=== PATIENT | female | born 1945 | race Caucasian/White ===

== ENCOUNTER 2016-05-30 08:35 | Inpatient (IN) | payer MEDICARE ==
[2016-05-27 13:23] LABS: HEMATOCRIT 34.5 % (36.0-48.0); HEMOGLOBIN 11.7 g/dL (12.0-16.0)
[2016-05-27 13:34] LABS: BUN (BLOOD UREA NITROGEN) 13 MG/DL (6-23); CALCIUM, SERUM 9.2 MG/DL (8.5-10.4); CHLORIDE, SERUM 102 MMOL/L (96-112); CO2 (CARBON DIOXIDE) 29 MMOL/L (24-34); CREATININE 0.96 MG/DL (0.55-1.02); GFR AFRICAN AMERICAN 69 ML/MIN (>=60); GFR NON AFRICAN AMERICAN 60 ML/MIN (>=60); GLUCOSE, SERUM 102 MG/DL (60-99); POTASSIUM, SERUM 4.1 MMOL/L (3.5-5.3); SODIUM, SERUM 141 MMOL/L (135-148)
--- NOTE | ~2016-05-30 | DS ---
Discharge Summary [facility] [address] [place]. [address] NAME: DOLORES AVILA : 47 STATUS : DIS IN PAT#: [id number] AGE: 71 ADM/REG DATE : 05/30/16 MR#: [id number] REPORT SERV DATE: 07/04/16 DICTATED BY: LISSETTE NIELSEN DATE: 07/03/16 REPORT STATUS : Draft TRANSCRIBED BY: ISMAEL DATE: 07/03/16 Data Collection from hospitalization DISCHARGE DIAGNOSES: 1. A 6.5 cm descending thoracic aortic aneurysm. 2. Hypertension. 3. Schizophrenia. 4. Hyperlipidemia. 5. Chronic obstructive pulmonary disease. 6. Anemia. 7. Dementia. 8. Depression. CONSULTATIONS: Dr. Chintan Degroot and Dr. Prasad Martins. PROCEDURES PERFORMED: 1. Left carotid subclavian bypass (7 mm Hemashield graft). 2. Ultrasound-guided percutaneous access, bilateral common femoral arteries. 3. Catheter placement in the thoracic aorta from bilateral femoral access. 4. Thoracic aortogram. 5. Endovascular repair of descending thoracic aortic aneurysm with planned left subclavian artery coverage (MIDAS Solutionstronic Valiant 44 x 44 x 200 proximal main device and 40 x 36 x 150 distal main device). DISCHARGE MEDICATIONS: Cogentin 1 mg twice a day, BuSpar 15 mg three times a day, Colace 100 mg twice a day, Pepcid 20 mg twice a day, Zocor 40 mg at bedtime, Saphris 20 mg sublingually twice a day, Zestril 20 mg daily, Lopressor 25 mg twice a day, iron one tablet after breakfast. CONDITION ON DISCHARGE: Stable. DISPOSITION: The patient was discharged to [facility] with diet and activities as instructed. She would follow up with me four weeks following discharge. HOSPITAL COURSE: This is a 71-year-old female who has ascending and descending thoracic aortic aneurysm. Her descending thoracic aneurysm was approximately 6.5 cm and was felt to be greater risk at this point. It was recommended that she undergo endovascular repair. It was felt that this would require left subclavian artery coverage. She consented for concomitant left carotid subclavian bypass. Treatment options were discussed and she elected to proceed with surgical intervention. She was admitted to the hospital at this time for further evaluation and treatment. Upon admission, she was taken to the operating room where she underwent the above-mentioned procedure. She tolerated this well and there were no complications. On postop day #1, she was seen by Dr. Chintan Degroot regarding stridor. She had initially been extubated in the PACU, but then had to be immediately reintubated before she returned back to the cardiovascular intensive care unit. She was then extubated a second time and remained extubated overnight and throughout the day. Throughout the course of the evening, her oxygen requirement had Discharge Summary [address] [place]. [address] NAME: DOLORES AVILA : 47 STATUS : DIS IN PAT#: [id number] AGE: 71 ADM/REG DATE : 05/30/16 MR#: [id number] REPORT SERV DATE: 07/04/16 DICTATED BY: LISSETTE NIELSEN DATE: 07/03/16 REPORT STATUS : Draft TRANSCRIBED BY: ISMAEL DATE: 07/03/16 increased from 2 L to 10 L nasal cannula high flow. About 30 minutes or so prior to this consult, she developed some upper airway stridor sounds and a racemic epinephrine was given by Respiratory. He had been asked to see the patient for assistance in management of her stridor. The patient denied shortness of breath, fevers, chills, or sweats. She denied any cough. She does have a history of COPD. She was confused and was really unable to provide any history due to her underlying dementia. Chest x-ray showed some left lower lobe atelectasis, otherwise no infiltrates. It was felt that most likely her stridor or was due to some airway edema from re-intubation following her surgery. Her oxygen requirement had increased, but currently she seemed to be maintaining her airway. She did have some inspiratory stridor that was easily auscultated over her trachea. She had already received racemic epinephrine. We continued to give these as needed. We would also start IV Decadron. We would wean her oxygen as tolerated. We would monitor her respiratory status very closely. There would be a low threshold to intubate her should she have further respiratory decompensation. He did not suspect that there was a component of pulmonary edema, so she was not going to be given diuresis for now. Her normal bronchodilators were continued. On the fifth, she had some agitation. Precedex had been started. She had no complaints of pain. Frank catheter was in place. She still had some confusion, but could respond appropriately. On 06/02/2016, Precedex was continued for agitation. Cardene was being given for hypertension. She was evaluated by Occupational and Physical Therapy. Speech/Language Pathology performed a bedside swallow study. The next day, Precedex was decreased, Cardene was stopped. She could move all extremities. On 06/04/2016, she still had some confusion. Precedex had been off for part of the evening. She was less agitated. She seemed to be more responsive. Tube feedings were going to begin. The next day, she was less agitated. She was more coherent. She was able to carry on a coherent conversation. Lopressor was increased. On 06/06/2016, chest x-ray showed left basilar atelectasis. She was alert, but confused. Speech/language pathology performed a bedside swallow study. Aspiration precautions were in place. She received Haldol overnight and her systolic blood pressure decreased into the 80s. She pulled out her central line and NG tube. She was going to be placed on a mechanical soft diet. She was seen in consultation by Dr. Prasad Martins. She had been confused and episodically agitated since her surgery. He had been asked to see the patient regarding possible pre-existing bipolar disorder and dementia. She has had a psychiatric admission to the [facility] program at [facility] about 4 or 5 years ago. Her most recent admission was to [facility] within the past year or so. She had been admitted to [facility] in her early 40s when she was going through a divorce and stayed there for a month or two. Most recently, she had been stabilized on Saphris and BuSpar as well as Cogentin. Her typical symptoms include paranoid ideation, hallucinations, and anger episodes. Dr. Cherry thought she may, in addition have an element of dementia. Her postop delirium had improved. She was felt to have a schizoaffective disorder. Her current psychotropic regimen continued at this time. Over the next couple of days, she still has some agitation overnight. Haldol was being given. At times, she refused care. On the , she was more cooperative. She was stable neurologically. Her mental status had improved. Discharge planning was performed. On 06/10/2016, she seemed to be less confused. Her vital signs were stable. She could move all of her extremities. Discharge instructions were given. Due to her improved and stable condition, she was discharged to [facility] with the above-stated instructions. Discharge Summary [address] [place]. [address] NAME: DOLORES AVILA : 47 STATUS : DIS IN PAT#: [id number] AGE: 71 ADM/REG DATE : 05/30/16 MR#: [id number] REPORT SERV DATE: 07/04/16 DICTATED BY: LISSETTE NIELSEN. DATE: 07/03/16 REPORT STATUS : Draft TRANSCRIBED BY: ISMAEL DATE: 07/03/16 Information collected by: Laura Willis I submit the above information as my discharge summary. TG/ISMAEL Lissette Nielsen M.D. / [id number] CC: Prasad Martins M.D. [facility] Mona Hernandez MD
--- NOTE | ~2016-05-30 | OP ---
Record Of Operation [facility] [address] [place]. [address] NAME: DOLORES AVILA : 47 STATUS : ADM IN PAT#: [id number] AGE: 71 ADM/REG DATE : 05/30/16 MR#: [id number] REPORT SERV DATE: 06/07/16 DICTATED BY: LISSETTE NIELSEN DATE: 06/06/16 REPORT STATUS : Draft TRANSCRIBED BY: MODL DATE: 06/06/16 DATE OF PROCEDURE: 05/30/2016 PREOPERATIVE DIAGNOSIS: A 6.5 cm descending thoracic aortic aneurysm. POSTOPERATIVE DIAGNOSIS: A 6.5 cm descending thoracic aortic aneurysm. PROCEDURES: 1. Left carotid subclavian bypass (7-mm Hemashield graft). 2. Ultrasound-guided percutaneous access, bilateral common femoral arteries. 3. Catheter placement in the thoracic aorta from bilateral femoral access. 4. Thoracic aortogram. 5. Endovascular repair of descending thoracic aortic aneurysm with planned left subclavian artery coverage (Medtronic Valiant 44 x 44 x 200 proximal main device and 40 x 36 x 150 distal main device). SURGEON: Lissette Nielsen M.D. MACHINE STRIPER: Shane. ANESTHESIA: General endotracheal with spinal drainage. ESTIMATED BLOOD LOSS: 100 mL. CONTRAST: 136 mL. IV FLUIDS: 1200 mL. COMPLICATIONS: None. INDICATION: Ms. Avila is a pleasant 71-year-old female with both ascending and descending thoracic aortic aneurysm. Her descending thoracic aneurysm is approximately 6.5 cm and felt to be the greater risk at this point. She is recommended for endovascular repair. It is known from prior imaging that this will require left subclavian artery coverage. As a result, she has consented for concomitant left carotid subclavian bypass. DETAILS OF PROCEDURE: After informed consent was obtained, the patient was brought to the hybrid suite and placed in supine position. After administration of anesthesia, she was prepped and draped in the usual sterile fashion. Support monitoring lines were placed beforehand by Anesthesia including spinal drain. We made a left subclavicular incision after time-out. I dissected down through the platysma and subcutaneous tissues with cautery. We divided the clavicular head of the sternocleidomastoid. We mobilized the scalene fat pad cephalad into the left. Identified the thoracic duct and ligated it. We identified the anterior scalene muscle and divided it. This was done carefully preserving the phrenic nerve. After that, we identified the subclavian artery. It was mobilized proximally and distally, encircled with vessel loops. Through the same incision, we exposed Record Of Operation [facility] [address] [place]. [address] NAME: DOLORES AVILA : 47 STATUS : ADM IN PAT#: [id number] AGE: 71 ADM/REG DATE : 05/30/16 MR#: [id number] REPORT SERV DATE: 06/07/16 DICTATED BY: LISSETTE NIELSEN DATE: 06/06/16 REPORT STATUS : Draft TRANSCRIBED BY: MODL DATE: 06/06/16 the common carotid artery. We retracted the jugular vein. The vagus nerve was identified and preserved. Carotid was soft and disease free. It is encircled with vessel loops as well. We systemically heparinized. We then performed end-to-side anastomosis with a 7-mm Hemashield graft to the subclavian artery with running 5-0 Prolene and HS-7 needle. After completing the suture line, it was upsized and tied for flushing. We then performed end-to- side anastomosis of the common carotid artery to the Hemashield graft. After completing the suture line, we flushed toward the subclavian anastomosis leaving the distal common carotid artery clamp for several seconds. We then tied the suture line with subclavian. We then restored flow to the right arm and after several seconds to the distal left common carotid artery. Normal Doppler signals were appreciated. Suture lines were hemostatic. After that, we exposed the proximal subclavian artery and ligated it. We ensured hemostasis. We irrigated with sterile saline. We left the wound open, but covered with sterile drapes. After that, we turned our attention to bilateral femoral arteries. Ultrasound guidance was used to access bilateral femoral arteries after permanent imaging of the arteries documenting patency was saved and stored in the patient's chart. I accessed with micropuncture needles bilaterally and passed micropuncture wires. We then upsized to a 5- American sheath over Bentson wire on the left. I placed a Bentson wire on the right and dilated the access site after making a stab incision down to the femoral artery for limited exposure. Two ProGlide closure devices were placed on the right in a preclose technique. We then followed the 11-American sheath. I then advanced the Bentson wire and a bur 2 carefully into the aortic arch. I then exchanged for a Lunderquist wire from the right femoral access. Flush catheter was brought from the left. Arch and descending thoracic aortogram was performed, which showed a patent nonaneurysmal arch. The ascending aorta is aneurysmal. There is no dissection. There was normal arch vessel configuration. It is a type 3 arch. The descending thoracic aortic aneurysm is clearly visualized with no contrast extravasation. After we selected our distal landing zone, we built up from the distal end first. We deployed a 40 x 36 x 150 distal main device several centimeters above the celiac axis. We then brought the proximal device up next which is a 44 x 44 x 200 proximal main device. This was deployed up to the left common carotid origin covering subclavian origin as intended. Delivery system was removed and the sheath replaced. We used a Reliant balloon to balloon the proximal landing site as well as stent overlap sites. Repeat contrast injection shows good placement of the stent with no impingement of flow on left common carotid artery. The left carotid subclavian bypass is clearly visualized with good flow and good flow distally in the carotid artery. There is no appreciable endoleak. After that, wires and catheters were removed. Right femoral access was successfully closed with the ProGlide closure devices in the preclose technique. Left femoral access was also closed with a ProGlide. The incision in the right groin was closed with 4-0 Monocryl and Dermabond. After that, I turned my attention to the left supraclavicular incision. We once again ensured hemostasis. We placed a round 15 Juan M drain, brought out through a separate stab incision. I secured the skin with 2-0 nylon. The drain was hooked to bulb suction. We reapproximated the clavicular head of the sternocleidomastoid with 2-0 Vicryl. We then closed the platysma with running 2-0 Vicryl. The skin was closed with 4-0 Monocryl in a subcuticular fashion. We then applied Dermabond. The patient tolerated the procedure well with no complications. I was present and participated in the entire case as dictated. Record Of Operation [facility] [address] [place]. [address] NAME: MARGARITADOLORES HELEN : 47 STATUS : ADM IN PAT#: [id number] AGE: 71 ADM/REG DATE : 05/30/16 MR#: [id number] REPORT SERV DATE: 06/07/16 DICTATED BY: LISSETTE NIELSEN. DATE: 06/06/16 REPORT STATUS : Draft TRANSCRIBED BY: ISMAEL DATE: 06/06/16 RADHA/ISMAEL Lissette Nielsen M.D. / [id number] CC: Lissette Nielsen M.D.
--- NOTE | ~2016-05-30 | CN ---
Consultation Report [facility] [address] [place]. [address] NAME: DOLORES AVILA : 47 STATUS : ADM IN PAT#: [id number] AGE: 71 ADM/REG DATE : 05/30/16 MR#: [id number] REPORT SERV DATE: 05/31/16 DICTATED BY: ENRICO DEGROOT DATE: 05/31/16 REPORT STATUS : Draft TRANSCRIBED BY: MODL DATE: 05/31/16 CONSULT NOTE DATE OF CONSULTATION: 05/31/2016 REASON FOR CONSULTATION: Stridor. HISTORY OF PRESENT ILLNESS: The patient is a 71-year-old, white female with a past medical history of dementia, COPD, and hypertension, who underwent ascending aortic aneurysm repair on 05/30/[address] Nielsen. Procedure went well with no major complications. The patient initially was extubated in the PACU but then had to be immediately reintubated. Then, however, before she returned back to the cardiovascular intensive care unit, she was then extubated a second time and has remained extubated overnight and throughout the day. Through the course of this evening, her oxygen requirement has increased from 2 L to 10 L nasal cannula high flow. Then about 30 minutes or so prior to this consult, she developed some upper airway stridorous sounds and a racemic epinephrine was given by Respiratory, and we are consulted for assistance in management of her stridor. At talking with the patient, she denies any shortness of breath. She denies any fevers, chills, sweats. She denies any cough. She does have a history of COPD per the record. The patient is confused and unable to really provide history due to her underlying dementia. PAST MEDICAL HISTORY: 1. Dementia. 2. COPD. 3. Hypertension. 4. Hyperlipidemia. 5. Depression. HOME MEDICATIONS: See medication reconciliation form. ALLERGIES: PENICILLIN. SOCIAL HISTORY: Unable to provide secondary to dementia. FAMILY HISTORY: Unable to provide secondary to dementia. REVIEW OF SYSTEMS: Review of systems unable to provide secondary to dementia and confusion. PHYSICAL EXAMINATION: VITAL SIGNS: Temperature 98.8, heart rate 84, respiratory rate 21, blood pressure 98/53. GENERAL: Confused but in no acute distress. HEENT: Pupils are equal, round, and reactive to light. Extraocular movements are intact. Oropharynx clear. Moist mucous membranes. Consultation Report [facility] [address] [place]. [address] NAME: DOLORES AIVLA : 47 STATUS : ADM IN PAT#: [id number] AGE: 71 ADM/REG DATE : 05/30/16 MR#: [id number] REPORT SERV DATE: 05/31/16 DICTATED BY: ENRICO DEGROOT DATE: 05/31/16 REPORT STATUS : Draft TRANSCRIBED BY: MODL DATE: 05/31/16 NECK: Supple. Nontender. No lymphadenopathy. No thyromegaly. No jugular venous distention. LUNGS: Coarse crackles bilaterally in the anterior lung ribeiro. There are inspiratory wheezes heard when listening over the trachea. ABDOMEN: Soft, nontender, nondistended. Positive bowel sounds. No hepatosplenomegaly. EXTREMITIES: No cyanosis, clubbing, or edema. NEURO: Alert but oriented x2. Cranial nerves appear intact. PSYCH: Appears appropriate. LABORATORIES AND IMAGING: Metabolic profile unremarkable. CBC with hemoglobin 8.9. Chest x- ray shows some left lower lobe atelectasis, otherwise no infiltrates. ABG with a pH of 7.38, pCO2 of 44, pO2 of 245 on 100% high-flow nasal cannula. ASSESSMENT AND PLAN: The patient is a 71-year-old white female with past medical history of dementia, chronic obstructive pulmonary disease, and hypertension, who is postop day #1 from ascending aortic aneurysm repair, now with postop stridor. Most likely, the patient's stridor is due to some airway edema from her re-intubation last evening following her surgery. Her oxygen requirements have increased throughout the evening but currently she seems to be maintaining airway. She does still have some inspiratory stridor that is easily auscultated over her trachea. She has already received racemic epinephrine. We will continue to give these as needed. We will also start Decadron 8 mg IV q.6 hours x3. We will wean her oxygen as tolerated. We will monitor her respiratory status very closely. We will have a low threshold to intubate her should she have further respiratory decompensation. Her chest x-ray looks relatively clear other than some atelectasis. I do not suspect that there is a component of pulmonary edema so we will not give any diuresis for now. I will also continue her normal bronchodilators for her COPD. I appreciate the consult. We will continue to follow along the patient with you. Please call with questions. Total critical care time spent on this patient was 35 minutes. ISAI/ISMAEL Enrico Degroot MD / [id number] CC: Deysi Briseno MD
--- NOTE | ~2016-05-30 | CN ---
Consultation Report [facility] [address] [place]. [address] NAME: DOLORES AVILA : 47 STATUS : ADM IN PAT#: [id number] AGE: 71 ADM/REG DATE : 05/30/16 MR#: [id number] REPORT SERV DATE: 06/06/16 DICTATED BY: PRASAD DONALDSON DATE: 06/06/16 REPORT STATUS : Draft TRANSCRIBED BY: MODL DATE: 06/06/16 PSYCHIATRIC CONSULTATION DATE OF CONSULTATION: 06/06/2016 I reviewed this patient's medical record. I discussed her status with the nursing staff. I discussed her history with her daughter Luci. HISTORY OF PRESENT ILLNESS: This is postoperative day #10 following surgery for a left carotid to subclavian bypass and an endovascular repair of a thoracic aneurysm. She has been confused and episodically agitated since the surgery. I was consulted concerning a possible pre-existing bipolar disorder and dementia. PAST PSYCHIATRIC HISTORY: The patient had her first episode of depression and psychosis when she was in her early 40s. She was going through a divorce at about that time. She was admitted to [facility] and stayed there for a month or two. Subsequently she has been followed as an outpatient by Dr. Cherry, psychiatrist. She next had a psychiatric admission to the [facility] program at [facility] about four-five years ago, and her most recent admission was to [facility] within the past year or so. Most recently, she has been stabilized on Saphris 10 to 20 mg b.i.d. and BuSpar 15 mg t.i.d., and Cogentin 1 mg b.i.d. Her typical symptoms consist of paranoid ideation, hallucinations, and anger episodes. More recently, Dr. Cherry thought she might have in addition an element of dementia. MENTAL STATUS: She was awake. She made good eye contact. She complained of feeling "very tired." Her mood was euthymic. Her affect was constricted in range. Her thinking was logical. At this time, she had no delusions and no hallucinations. She was oriented to "[facility]" - "May" - "the or the ." She knew she had a surgical procedure on "a blood vessel." DIAGNOSES: 1. Delirium, postoperative, improved. 2. Schizoaffective disorder. RECOMMENDATIONS: Continue her current psychotropic regimen which consists of Saphris 10 mg sublingually b.i.d., BuSpar 15 mg p.o. t.i.d., and Cogentin 1 mg p.o. b.i.d. I will sign off. DK/MODL Prasad Donaldson M.D. Consultation Report [address] [address] NAME: DOLORES AVILA : 47 STATUS : ADM IN PAT#: [id number] AGE: 71 ADM/REG DATE : 05/30/16 MR#: [id number] REPORT SERV DATE: 06/06/16 DICTATED BY: PRASAD DONALDSON DATE: 06/06/16 REPORT STATUS : Draft TRANSCRIBED BY: ISMAEL DATE: 06/06/16 / [id number] CC: Preston Nielsen M.D.
[~2016-05-30 08:35] MED LIST: BUSPAR15 M1 PO; COGEN1 PO; IRON TAB PO; LOP25 PO; SAPHRIS10 MG SL; ZESTRIL20 MG PO; ZOCOR40 PO
[2016-05-30 16:51] LABS: BE (BASE EXCESS) -3.4 MEQ/L (0 +/- 2.5); CARBOXYHEMOGLOBIN 0.3 % (0-3); HCO3 (ACTUAL BICARBONATE) 22.2 MEQ/L (23-27); HEMOBLOGIN CONTENT 11.7 G/DL (12-16); INSTRUMENT SERIAL # 11843; METHEMOGLOBIN 0.8 % (0-3); MODE SIMV; O2 CONTENT 16.7 VOL% (18-24); PCO2 (CO2 TENSION) 42 MMHG (35-45); PO2 (O2 TENSION) 252 MMHG (79-93); SAMPLE Arterial; TIDAL VOLUME 650 ML; pH 7.34 (7.37-7.43)
[2016-05-30 17:16] LABS: BASOPHILS 0.3 %; BASOPHILS ABSOLUTE 0.04 10/3/uL (0.0-0.16); EOSINOPHILS 1.6 %; EOSINOPHILS ABSOLUTE 0.23 10/3/uL (0.0-0.53); HEMOGLOBIN 10.6 g/dL (12.0-16.0); IMMATURE GRANULOCYTES 0.4 %; IMMATURE GRANULOCYTES ABSOLUTE 0.06 10/3/uL (0.0-0.11); LYMPHOCYTES 16.3 %; LYMPHOCYTES ABSOLUTE 2.27 10/3/uL (0.67-4.30); MEAN CORPUS HGB CONC 34.4 g/dL (32.0-36.0); MEAN CORPUSCULAR VOLUME 84.2 fL (80-100); MEAN PLATELET VOLUME 8.3 fL (9.2-13.0); MONOCYTES 4.4 %; MONOCYTES ABSOLUTE 0.62 10/3/uL (0.21-1.20); NEUTROPHILS ABSOLUTE 10.73 10/3/uL (2.02-8.40); PLATELET COUNT 192 10/3/uL (150-400); RBC DISTRIBUTION WIDTH 15.4 % (12.0-16.0); RED CELL COUNT 3.66 10/6/uL (4.0-5.6)
[2016-05-30 17:18] LABS: HEMATOCRIT 30.8 % (36.0-48.0); MANUAL DIFF NO %
[2016-05-30 17:24] LABS: A/G RATIO 0.9 (0.7-1.9); ALKALINE PHOSPHATASE 100 U/L (45-117); BUN (BLOOD UREA NITROGEN) 13 MG/DL (6-23); CHLORIDE, SERUM 104 MMOL/L (96-112); CO2 (CARBON DIOXIDE) 22 MMOL/L (24-34); CREATININE 0.99 MG/DL (0.55-1.02); GFR AFRICAN AMERICAN 67 ML/MIN (>=60); GFR NON AFRICAN AMERICAN 58 ML/MIN (>=60); GLOBULIN 3.5 G/DL (2.5-4.1); GLUCOSE, SERUM 270 MG/DL (60-99); POTASSIUM, SERUM 3.6 MMOL/L (3.5-5.3); SGOT(AST) 16 U/L (5-40); SGPT(ALT) 12 U/L (5-65); SODIUM, SERUM 137 MMOL/L (135-148); TOTAL BILIRUBIN 0.4 MG/DL (0-1.2); TOTAL PROTEIN 6.5 G/DL (6.0-8.5)
[2016-05-30 21:42] LABS: BE (BASE EXCESS) -2.6 MEQ/L (0 +/- 2.5); CARBOXYHEMOGLOBIN 0.3 % (0-3); DEVICE NC; HCO3 (ACTUAL BICARBONATE) 21.5 MEQ/L (23-27); HEMOBLOGIN CONTENT 10.6 G/DL (12-16); INSTRUMENT SERIAL # 11843; METHEMOGLOBIN 0.8 % (0-3); O2 CONTENT 14.4 VOL% (18-24); OPERATOR ID 32193; PCO2 (CO2 TENSION) 35 MMHG (35-45); PO2 (O2 TENSION) 107 MMHG (79-93); SAMPLE Arterial; pH 7.41 (7.37-7.43)
[2016-05-31 03:53] LABS: BASOPHILS 0.1 %; BASOPHILS ABSOLUTE 0.01 10/3/uL (0.0-0.16); EOSINOPHILS 0 %; HEMOGLOBIN 8.9 g/dL (12.0-16.0); IMMATURE GRANULOCYTES 0.1 %; IMMATURE GRANULOCYTES ABSOLUTE 0.01 10/3/uL (0.0-0.11); LYMPHOCYTES 8.6 %; LYMPHOCYTES ABSOLUTE 0.59 10/3/uL (0.67-4.30); MEAN CORPUS HGB CONC 34.4 g/dL (32.0-36.0); MEAN CORPUSCULAR HEMOGLOB 29.3 pg (26.0-34.0); MEAN CORPUSCULAR VOLUME 85.2 fL (80-100); MEAN PLATELET VOLUME 7.8 fL (9.2-13.0); MONOCYTES ABSOLUTE 0.62 10/3/uL (0.21-1.20); NEUTROPHILS 82.2 %; NEUTROPHILS ABSOLUTE 5.65 10/3/uL (2.02-8.40); RBC DISTRIBUTION WIDTH 15.1 % (12.0-16.0); RED CELL COUNT 3.04 10/6/uL (4.0-5.6)
[2016-05-31 04:03] LABS: HEMATOCRIT 25.9 % (36.0-48.0); WHITE BLOOD CELLS 6.9 10/3/uL (4.5-10.5)
[2016-05-31 04:04] LABS: MANUAL DIFF NO %; PLATELET COUNT 109 10/3/uL (150-400)
[2016-05-31 04:05] LABS: BUN (BLOOD UREA NITROGEN) 14 MG/DL (6-23); CALCIUM, SERUM 7.7 MG/DL (8.5-10.4); CHLORIDE, SERUM 104 MMOL/L (96-112); CO2 (CARBON DIOXIDE) 25 MMOL/L (24-34); CREATININE 0.85 MG/DL (0.55-1.02); GFR AFRICAN AMERICAN 80 ML/MIN (>=60); GFR NON AFRICAN AMERICAN 69 ML/MIN (>=60); POTASSIUM, SERUM 4.3 MMOL/L (3.5-5.3); SODIUM, SERUM 138 MMOL/L (135-148)
[2016-05-31 04:06] LABS: GLUCOSE, SERUM 114 MG/DL (60-99)
[2016-05-31 15:15] LABS: BE (BASE EXCESS) -0.8 MEQ/L (0 +/- 2.5); CARBOXYHEMOGLOBIN 0.3 % (0-3); DEVICE NC; HCO3 (ACTUAL BICARBONATE) 23.2 MEQ/L (23-27); HEMOBLOGIN CONTENT 11.1 G/DL (12-16); INSTRUMENT SERIAL # 11843; METHEMOGLOBIN 0.6 % (0-3); O2 CONTENT 14.6 VOL% (18-24); OPERATOR ID 18642; PCO2 (CO2 TENSION) 36 MMHG (35-45); PO2 (O2 TENSION) 73 MMHG (79-93); SAMPLE Arterial; pH 7.43 (7.37-7.43)
[2016-05-31 20:37] LABS: BE (BASE EXCESS) 0.1 MEQ/L (0 +/- 2.5); CARBOXYHEMOGLOBIN 0.1 % (0-3); DEVICE HFNC; HCO3 (ACTUAL BICARBONATE) 25.3 MEQ/L (23-27); HEMOBLOGIN CONTENT 11.6 G/DL (12-16); INSTRUMENT SERIAL # 11843; METHEMOGLOBIN 0.6 % (0-3); O2 CONTENT 16.6 VOL% (18-24); OPERATOR ID 13415; PCO2 (CO2 TENSION) 44 MMHG (35-45); PO2 (O2 TENSION) 245 MMHG (79-93); SAMPLE Arterial; pH 7.38 (7.37-7.43)
[2016-06-01 04:05] LABS: BASOPHILS 0 %; EOSINOPHILS 0 %; HEMATOCRIT 27.1 % (36.0-48.0); HEMOGLOBIN 9.3 g/dL (12.0-16.0); IMMATURE GRANULOCYTES 0.7 %; IMMATURE GRANULOCYTES ABSOLUTE 0.05 10/3/uL (0.0-0.11); LYMPHOCYTES 4.9 %; LYMPHOCYTES ABSOLUTE 0.36 10/3/uL (0.67-4.30); MEAN CORPUS HGB CONC 34.3 g/dL (32.0-36.0); MEAN CORPUSCULAR VOLUME 84.4 fL (80-100); MEAN PLATELET VOLUME 8.4 fL (9.2-13.0); MONOCYTES 2.8 %; MONOCYTES ABSOLUTE 0.21 10/3/uL (0.21-1.20); NEUTROPHILS 91.6 %; PLATELET COUNT 120 10/3/uL (150-400); RBC DISTRIBUTION WIDTH 15.1 % (12.0-16.0); RED CELL COUNT 3.21 10/6/uL (4.0-5.6); WHITE BLOOD CELLS 7.4 10/3/uL (4.5-10.5)
[2016-06-01 04:07] LABS: BUN (BLOOD UREA NITROGEN) 15 MG/DL (6-23); CALCIUM, SERUM 8.2 MG/DL (8.5-10.4); CHLORIDE, SERUM 97 MMOL/L (96-112); CO2 (CARBON DIOXIDE) 26 MMOL/L (24-34); CREATININE 0.85 MG/DL (0.55-1.02); GFR AFRICAN AMERICAN 80 ML/MIN (>=60); GFR NON AFRICAN AMERICAN 69 ML/MIN (>=60); GLUCOSE, SERUM 173 MG/DL (60-99); SODIUM, SERUM 133 MMOL/L (135-148)
[2016-06-01 04:16] LABS: MANUAL DIFF NO %
[2016-06-02 04:26] LABS: BASOPHILS 0 %; EOSINOPHILS 0 %; HEMATOCRIT 28.3 % (36.0-48.0); HEMOGLOBIN 9.6 g/dL (12.0-16.0); IMMATURE GRANULOCYTES 0.4 %; IMMATURE GRANULOCYTES ABSOLUTE 0.04 10/3/uL (0.0-0.11); LYMPHOCYTES 3.7 %; LYMPHOCYTES ABSOLUTE 0.37 10/3/uL (0.67-4.30); MEAN CORPUS HGB CONC 33.9 g/dL (32.0-36.0); MEAN CORPUSCULAR HEMOGLOB 28.8 pg (26.0-34.0); MEAN PLATELET VOLUME 8.6 fL (9.2-13.0); MONOCYTES 4.2 %; MONOCYTES ABSOLUTE 0.42 10/3/uL (0.21-1.20); NEUTROPHILS 91.7 %; NEUTROPHILS ABSOLUTE 9.14 10/3/uL (2.02-8.40); RBC DISTRIBUTION WIDTH 15.2 % (12.0-16.0); RED CELL COUNT 3.33 10/6/uL (4.0-5.6)
[2016-06-02 04:32] LABS: MANUAL DIFF NO %; PLATELET COUNT 159 10/3/uL (150-400)
[2016-06-02 04:38] LABS: CALCIUM, SERUM 8.8 MG/DL (8.5-10.4); CHLORIDE, SERUM 103 MMOL/L (96-112); CO2 (CARBON DIOXIDE) 25 MMOL/L (24-34); CREATININE 0.84 MG/DL (0.55-1.02); GFR AFRICAN AMERICAN 82 ML/MIN (>=60); GFR NON AFRICAN AMERICAN 70 ML/MIN (>=60); GLUCOSE, SERUM 166 MG/DL (60-99); POTASSIUM, SERUM 3.8 MMOL/L (3.5-5.3); SODIUM, SERUM 138 MMOL/L (135-148)
[2016-06-02 04:40] LABS: BUN (BLOOD UREA NITROGEN) 27 MG/DL (6-23)
[2016-06-03 04:08] LABS: BUN (BLOOD UREA NITROGEN) 25 MG/DL (6-23); CALCIUM, SERUM 9.1 MG/DL (8.5-10.4); CHLORIDE, SERUM 105 MMOL/L (96-112); CO2 (CARBON DIOXIDE) 27 MMOL/L (24-34); CREATININE 0.68 MG/DL (0.55-1.02); GFR AFRICAN AMERICAN 103 ML/MIN (>=60); GFR NON AFRICAN AMERICAN 89 ML/MIN (>=60); GLUCOSE, SERUM 164 MG/DL (60-99); POTASSIUM, SERUM 3.9 MMOL/L (3.5-5.3); SODIUM, SERUM 142 MMOL/L (135-148)
[2016-06-03 04:29] LABS: BASOPHILS 0 %; EOSINOPHILS 0 %; IMMATURE GRANULOCYTES ABSOLUTE 0.15 10/3/uL (0.0-0.11); LYMPHOCYTES 2.1 %; LYMPHOCYTES ABSOLUTE 0.33 10/3/uL (0.67-4.30); MEAN CORPUS HGB CONC 33.9 g/dL (32.0-36.0); MEAN CORPUSCULAR HEMOGLOB 29.3 pg (26.0-34.0); MEAN CORPUSCULAR VOLUME 86.3 fL (80-100); MEAN PLATELET VOLUME 8.5 fL (9.2-13.0); MONOCYTES 8.1 %; MONOCYTES ABSOLUTE 1.26 10/3/uL (0.21-1.20); NEUTROPHILS 88.8 %; NEUTROPHILS ABSOLUTE 13.81 10/3/uL (2.02-8.40); RBC DISTRIBUTION WIDTH 15.2 % (12.0-16.0)
[2016-06-03 04:35] LABS: HEMATOCRIT 34.5 % (36.0-48.0); HEMOGLOBIN 11.7 g/dL (12.0-16.0); MANUAL DIFF NO %; PLATELET COUNT 239 10/3/uL (150-400); WHITE BLOOD CELLS 15.6 10/3/uL (4.5-10.5)
[2016-06-04 04:25] LABS: HEMATOCRIT 31.1 % (36.0-48.0); HEMOGLOBIN 10.5 g/dL (12.0-16.0); MEAN CORPUS HGB CONC 33.8 g/dL (32.0-36.0); MEAN CORPUSCULAR HEMOGLOB 29.7 pg (26.0-34.0); MEAN CORPUSCULAR VOLUME 87.9 fL (80-100); MEAN PLATELET VOLUME 8.6 fL (9.2-13.0); RED CELL COUNT 3.54 10/6/uL (4.0-5.6)
[2016-06-04 04:26] LABS: MANUAL DIFF YES %; PLATELET COUNT 164 10/3/uL (150-400); WHITE BLOOD CELLS 6.6 10/3/uL (4.5-10.5)
[2016-06-04 04:38] LABS: CALCIUM, SERUM 8.7 MG/DL (8.5-10.4); CHLORIDE, SERUM 104 MMOL/L (96-112); CO2 (CARBON DIOXIDE) 25 MMOL/L (24-34); CREATININE 1.05 MG/DL (0.55-1.02); GFR AFRICAN AMERICAN 62 ML/MIN (>=60); GFR NON AFRICAN AMERICAN 54 ML/MIN (>=60); GLUCOSE, SERUM 171 MG/DL (60-99); POTASSIUM, SERUM 4.3 MMOL/L (3.5-5.3); SODIUM, SERUM 140 MMOL/L (135-148)
[2016-06-04 04:48] LABS: BUN (BLOOD UREA NITROGEN) 47 MG/DL (6-23)
[2016-06-04 04:59] LABS: BAND NEUTROPHILS 4 %; LYMPHOCYTES 2 %; LYMPHOCYTES ABSOLUTE (CALC) 0.13 10/3/uL (0.67-4.30); MONOCYTES 1 %; MONOCYTES ABSOLUTE (CALC) 0.07 10/3/uL (0.21-1.20); RBC MORPHOLOGY NORM (NORMAL); SEGMENTED NEUTROPHIL (0) 93 %; TOTAL NUCLEATED CELLS 100
[2016-06-05 03:45] LABS: BASOPHILS 0.1 %; BASOPHILS ABSOLUTE 0.01 10/3/uL (0.0-0.16); EOSINOPHILS 0 %; HEMATOCRIT 29.4 % (36.0-48.0); HEMOGLOBIN 9.9 g/dL (12.0-16.0); IMMATURE GRANULOCYTES 1.3 %; IMMATURE GRANULOCYTES ABSOLUTE 0.11 10/3/uL (0.0-0.11); LYMPHOCYTES 5.2 %; LYMPHOCYTES ABSOLUTE 0.46 10/3/uL (0.67-4.30); MEAN CORPUS HGB CONC 33.7 g/dL (32.0-36.0); MEAN CORPUSCULAR HEMOGLOB 28.9 pg (26.0-34.0); MEAN PLATELET VOLUME 8.4 fL (9.2-13.0); MONOCYTES 9.3 %; MONOCYTES ABSOLUTE 0.82 10/3/uL (0.21-1.20); NEUTROPHILS 84.1 %; PLATELET COUNT 143 10/3/uL (150-400); RBC DISTRIBUTION WIDTH 14.8 % (12.0-16.0); RED CELL COUNT 3.42 10/6/uL (4.0-5.6); WHITE BLOOD CELLS 8.8 10/3/uL (4.5-10.5)
[2016-06-05 03:46] LABS: MANUAL DIFF NO %
[2016-06-05 03:54] LABS: BUN (BLOOD UREA NITROGEN) 34 MG/DL (6-23); CALCIUM, SERUM 8.2 MG/DL (8.5-10.4); CHLORIDE, SERUM 109 MMOL/L (96-112); CO2 (CARBON DIOXIDE) 25 MMOL/L (24-34); CREATININE 0.81 MG/DL (0.55-1.02); GFR AFRICAN AMERICAN 85 ML/MIN (>=60); GFR NON AFRICAN AMERICAN 74 ML/MIN (>=60); GLUCOSE, SERUM 218 MG/DL (60-99); SODIUM, SERUM 143 MMOL/L (135-148)
[2016-06-06 04:14] LABS: BASOPHILS 0 %; EOSINOPHILS 1.8 %; EOSINOPHILS ABSOLUTE 0.17 10/3/uL (0.0-0.53); HEMATOCRIT 29.6 % (36.0-48.0); HEMOGLOBIN 9.9 g/dL (12.0-16.0); IMMATURE GRANULOCYTES 2.1 %; LYMPHOCYTES 10.8 %; LYMPHOCYTES ABSOLUTE 1.02 10/3/uL (0.67-4.30); MEAN CORPUS HGB CONC 33.4 g/dL (32.0-36.0); MEAN CORPUSCULAR VOLUME 86.8 fL (80-100); MEAN PLATELET VOLUME 8.8 fL (9.2-13.0); MONOCYTES 9.3 %; MONOCYTES ABSOLUTE 0.88 10/3/uL (0.21-1.20); NEUTROPHILS ABSOLUTE 7.15 10/3/uL (2.02-8.40); PLATELET COUNT 137 10/3/uL (150-400); RBC DISTRIBUTION WIDTH 15.1 % (12.0-16.0); RED CELL COUNT 3.41 10/6/uL (4.0-5.6); WHITE BLOOD CELLS 9.4 10/3/uL (4.5-10.5)
[2016-06-06 04:16] LABS: MANUAL DIFF NO %
[2016-06-06 04:23] LABS: BUN (BLOOD UREA NITROGEN) 27 MG/DL (6-23); CALCIUM, SERUM 7.8 MG/DL (8.5-10.4); CHLORIDE, SERUM 105 MMOL/L (96-112); CO2 (CARBON DIOXIDE) 26 MMOL/L (24-34); GFR AFRICAN AMERICAN 87 ML/MIN (>=60); GFR NON AFRICAN AMERICAN 75 ML/MIN (>=60); GLUCOSE, SERUM 170 MG/DL (60-99); POTASSIUM, SERUM 3.5 MMOL/L (3.5-5.3); SODIUM, SERUM 141 MMOL/L (135-148)
[2016-06-07 04:06] LABS: HEMATOCRIT 30.4 % (36.0-48.0); HEMOGLOBIN 10.3 g/dL (12.0-16.0); MEAN CORPUS HGB CONC 33.9 g/dL (32.0-36.0); MEAN CORPUSCULAR HEMOGLOB 29.2 pg (26.0-34.0); MEAN CORPUSCULAR VOLUME 86.1 fL (80-100); MEAN PLATELET VOLUME 8.7 fL (9.2-13.0); PLATELET COUNT 123 10/3/uL (150-400); RBC DISTRIBUTION WIDTH 14.8 % (12.0-16.0); RED CELL COUNT 3.53 10/6/uL (4.0-5.6); WHITE BLOOD CELLS 8.4 10/3/uL (4.5-10.5)
[2016-06-07 04:07] LABS: MANUAL DIFF YES %
[2016-06-07 04:23] LABS: A/G RATIO 0.8 (0.7-1.9); ALBUMIN 2.7 G/DL (3.5-5.0); CHLORIDE, SERUM 105 MMOL/L (96-112); CO2 (CARBON DIOXIDE) 27 MMOL/L (24-34); CREATININE 0.77 MG/DL (0.55-1.02); GFR AFRICAN AMERICAN 91 ML/MIN (>=60); GFR NON AFRICAN AMERICAN 78 ML/MIN (>=60); GLOBULIN 3.4 G/DL (2.5-4.1); GLUCOSE, SERUM 164 MG/DL (60-99); PHOSPHORUS, SERUM 2.7 MG/DL (2.5-4.5); POTASSIUM, SERUM 3.2 MMOL/L (3.5-5.3); SGOT(AST) 11 U/L (5-40); SGPT(ALT) 15 U/L (5-65); SODIUM, SERUM 140 MMOL/L (135-148); TOTAL BILIRUBIN 0.5 MG/DL (0-1.2); TOTAL PROTEIN 6.1 G/DL (6.0-8.5)
[2016-06-07 04:44] LABS: EOSINOPHILS 4 %; EOSINOPHILS ABSOLUTE (CALC) 0.34 10/3/uL (0.0-0.53); LYMPHOCYTES 17 %; LYMPHOCYTES ABSOLUTE (CALC) 1.43 10/3/uL (0.67-4.30); MONOCYTES 5 %; MONOCYTES ABSOLUTE (CALC) 0.42 10/3/uL (0.21-1.20); NEUTROPHILS ABSOLUTE (CALC) 6.22 10/3/uL (2.02-8.40); SEGMENTED NEUTROPHIL (0) 74 %; TOTAL NUCLEATED CELLS 100
[2016-06-07 04:45] LABS: PLATELET ESTIMATE SLT DEC (ADEQUATE)
[2016-06-07 04:54] LABS: ALKALINE PHOSPHATASE 80 U/L (45-117); BUN (BLOOD UREA NITROGEN) 15 MG/DL (6-23)
== END 2016-06-10 15:21 | DRG 219 ==
LOC: SDC/OF 08:35 → CVICU 16:24 → 2SO 06-07 12:29 → 7NO 06-07 17:43
PROVIDERS: Internal Medicine Critical Care Medicine; Internal Medicine Pulmonary Disease; Surgery
PROC: 031 Upper Arteries, Bypass (ICD-10-PCS; principal; 2016-05-30 10:45)
PROC: 02VW3DZ Restriction of Thoracic Aorta, Descending with Intraluminal Device, Percutaneous Approach (ICD-10-PCS; 2016-05-30 10:45)
PROC: 03B Upper Arteries, Excision (ICD-10-PCS; 2016-05-30 10:45)
PROC: B3101ZZ Fluoroscopy of Thoracic Aorta using Low Osmolar Contrast (ICD-10-PCS; 2016-05-30 10:45)
PROC: 04V03DZ Restriction of Abdominal Aorta with Intraluminal Device, Percutaneous Approach (ICD-10-PCS; 2016-05-30 10:45)
DX: I71.6 Thoracoabdominal aortic aneurysm, without rupture (principal); J95.821 Acute postprocedural respiratory failure; F05 Delirium due to known physiological condition; J44.9 Chronic obstructive pulmonary disease, unspecified; F03.90 Unspecified dementia, unspecified severity, without behavioral disturbance, psychotic disturbance, mood disturbance, and anxiety; R13.10 Dysphagia, unspecified; R06.1 Stridor; E11.9 Type 2 diabetes mellitus without complications; I71.2 Thoracic aortic aneurysm, without rupture; F32.9 Major depressive disorder, single episode, unspecified; F25.9 Schizoaffective disorder, unspecified; Z79.899 Other long term (current) drug therapy; Z88.0 Allergy status to penicillin
CPT/HCPCS: 31720; 33880; 33889; 36200; 36415; 71010; 74000; 75956; 76937; 80048; 80053; 82330; 82803; 82805; 82947; 82962; 83735; 84100; 84132; 84295; 85014; 85018; 85025; 86850; 86900; 86901; 87641; 92610-GN; 93005; 94002; 94640; 94770; 97110-GO; 97110-GP; 97116-GP; 97162-GP; 97166-GO; 97530-GP; 97535-GO; A9270-GY; C1725; C1751; C1760; C1768; C1769; C1876; C1894; G8978-CL-GP; G8979-CL-GP; G8980-CL-GP; G8996-CJ-GN; G8996-CK-GN; G8997-CJ-GN; G8997-CK-GN; G8998-CJ-GN; G8998-CK-GN; J0690; J1580; J1630; J2250; J2370; J2405; J2710; J2720; J3010; J3370; J3411; Q9966